=== PATIENT | female | born 2005 | race Two or more races ===

== ENCOUNTER 2023-12-29 16:44 | Emergency (ER) | payer MEDICAID ==
[~2023-12-29] VITALS: Ht 162.6 cm; Wt 98.7 kg
[2023-12-29 19:03] VITALS: BP 129/80; PULSE 85; RESP 16; TEMP 97.9; O2SAT 97
[2023-12-29] MEDS ORDERED: IBUP1TAB5 PO (19:13)
[2023-12-29] MEDS ORDERED: CEPH500C PO (19:13)
== END 2023-12-29 19:24 | disposition home or self-care (01) ==
LOC: ER 16:44
DX: H10.31 Unspecified acute conjunctivitis, right eye (principal); H01.003 Unspecified blepharitis right eye, unspecified eyelid

== ENCOUNTER 2025-04-08 02:32 | Emergency (ER) | payer MEDICAID ==
[~2025-04-08] VITALS: Ht 162.6 cm; Wt 106.0 kg
[~2025-04-08 02:32] MED LIST: CEPH500C PO; IBUP1TAB5 PO
[2025-04-08 04:21] LABS: Basophils # (auto) 0.1 10 ^3/uL (0-0.2); Basophils % (auto) 0.8 % (0.0-2.0); Eosinophils # (auto) 0.3 10 ^3/uL (0-0.8); Eosinophils % (auto) 2.3 % (0.0-7.0); Hematocrit 44.6 % (36.0-46.0); Hemoglobin 15.2 g/dL (12.2-16.2); Lymphocytes # (auto) 3.8 10 ^3/uL (0.4-5.4); Mean Corpuscular Hemoglobin 29.3 pg (28.0-32.0); Mean Corpuscular Hgb Conc. 34.1 g/dL (32.0-36.0); Mean Corpuscular Volume 86.1 fL (80.0-100.0); Monocytes # (auto) 0.8 10 ^3/uL (0-1.3); Monocytes % (auto) 5.8 % (0.0-12.0); Neutrophils # (auto) 8.6 10 ^3/uL (1.6-8.6); Neutrophils % (auto) 63.1 % (37.0-80.0); Platelet Count (auto) 290 10^3/uL (140-450); Red Blood Cells 5.18 10^6/uL (4.0-5.20); Red Cell Distribution Width 13.2 % (11.8-14.3); White Blood Cell 13.7 10^3/uL (4.4-10.8)
[2025-04-08 04:27] VITALS: BP 123/80; PULSE 89; RESP 16; TEMP 99.9; O2SAT 97
[2025-04-08 04:32] LABS: Chloride 103 mmol/L (98-107); Potassium 3.9 mmol/L (3.5-5.1); Sodium 137 mmol/L (136-145)
[2025-04-08 04:33] LABS: Anion Gap 12 (5-15); Calcium 9.4 mg/dL (8.7-10.4); Carbon Dioxide 22 mmol/L (20-31)
[2025-04-08 04:38] LABS: BUN/Creatinine Ratio 13.2 (10.0-20.0); Blood Urea Nitrogen 9 mg/dL (9-23)
[2025-04-08] MEDS: KETOROLAC TROMETH 30 MG/ML 1ML VIAL IV ONE (04:49)
[2025-04-08] MEDS: CLINDAMYCIN 300MG IV 50 ML IV ONE (04:49)
[2025-04-08 04:51] LABS: Glucose 121 mg/dL (74-106)
[2025-04-08] MEDS: IOHEXOL 300 MG/ML 100ML BOTTLE IJ ONE (04:57)
--- NOTE | 2025-04-08 05:13 | DVH ---
History: r/o abscesss upper gluteal crease Comparison Study: None Technique: Multidetector spiral CT of the pelvis was performed from iliac crests to pubic symphysis. 100 cc of intravenous contrast was administered during this examination. Portal venous imaging was obtained. Axial, coronal and sagittal multiplanar reformats were performed by the technologist on a separate workstation. Radiation Dose : CT Dose: CTDI volume is 37.08 mGy. Dose-length product is 1609.14 mGy*cm Findings: Visualized bowel: Small bowel and colon are normal in caliber and distribution. The appendix is not visualized; however, no secondary findings of acute appendicitis identified. Ascites: Absent Lymphadenopathy: No pelvic or mesenteric lymphadenopathy. Pelvis Wall and Mesentery: Small abscess in the superficial subcutaneous soft-tissue at midline of th e upper gluteal cleft. This measures 1.6 cm and is just below the skin surface. Vasculature: The visualized abdominal aorta is normal in size and caliber. Abdominal and pelvic vess els demonstrate normal enhancement. Pelvic Organs: Unremarkable Musculoskeletal: No aggressive focal bony lesions, acute fractures or dislocation. Bladder: Unremarkable IMPRESSION: Small abscess in the superficial subcutaneous soft-tissue at midline of the upper gluteal cleft. This measures 1.6 cm and is just below the skin surface.
--- NOTE | 2025-04-08 05:24 | ED.PDOC ---
History of Present Illness(SKN HPI Comments 19 y/o F presents with draining abscess wound. Patient reports on history of current abscess in her upper gluteal crease that began having puss infused with blood discharge, suddenly, this morning. She denies having any fever, chills, lightheadedness, nausea, vomiting, or further associated symptoms. Chief Complaint: Abscess Time Seen by MD: 02:48 Primary Care Provider: NONE History of Present Illness: Nurses Notes, Medications, Allergies Allergies: Coded Allergies: NO KNOWN ALLERGIES (Unverified , 12/29/23) Home Meds Active Scripts Ibuprofen (Ibuprofen) 600 Mg Tab, 1 TAB PO TID PRN for 5 Days, #15 TAB Prov:DAVID CHANEY MD 04/08/25 Acetaminophen (Acetaminophen Er) 650 Mg Tab, 650 MG PO TIDPRN PRN for 5 Days, #15 TAB Prov:DAVID CHANEY MD 04/08/25 Clindamycin Hcl (Clindamycin Hcl) 300 Mg Cap, 1 CAP PO TID, #21 CAP Prov:DAVID CHANEY MD 04/08/25 Ibuprofen Micronized (Ibuprofen) 600 Mg Tab, 1 TAB PO Q6HPRN PRN, #20 TAB Needed for pain Prov:BETTSMIRANDAALDA Q MARINE EQUIPMENT DESIGN ENGINEER 12/29/23 Cephalexin Monohydrate (Cephalexin) 500 Mg Cap, 1 CAP PO QID for 10 Days, #40 CAP Prov:BETTSMIRANDAALDA Q MARINE EQUIPMENT DESIGN ENGINEER 12/29/23 Information Source: Patient Mode of Arrival: Ambulatory Severity: Mild Timing: Hours Duration: Since onset Prehospital treatment: None Review of Systems: REVIEW OF SYSTEMS: No fever, no chills, or fatigue HEENT: No sore throat, no earache, no congestion, no neck pain. Cardiac: No chest pain. No palpitations. Lungs: No shortness of breath, no cough. GI: No nausea, no vomiting, no diarrhea, no constipation, no abdominal pain : No dysuria, frequency, or urgency. No hematuria. Musculoskeletal: No joint pain , no joint swelling, no extremity edema. Skin: Abscess with discharge to gluteal crease. No rash, no itching. Neuro: No headache, no dizziness, no weakness Vital Signs Vital Signs Date Time Temp Pulse Resp B/P (MAP) Pulse Ox O2 Delivery O2 Flow Rate FiO2 04/08/25 04:27 99.9 89 16 123/80 (94) 97 99.9 Physical Exam General: Awake, alert and oriented. No acute distress. Skin: Draining abscess with blood and pus that is indurated in upper gluteal crease with erythema and warmth to surrounding tissues. Skin in warm, dry and intact. Appropriate color for ethnicity. HEENT: The head is normocephalic and atraumatic. Conjunctivae are clear without exudates or hemorrhage. Sclera is non-icteric. EOM are intact. No signs of nystagmus. Eyelids are normal in appearance without swelling or lesions. Oral mucosa is pink and moist Neck: The neck is supple with normal range of motion. No JVD. Cardiac: Heart rate and rhythm are normal. No murmurs, gallops, or rubs are auscultated. Respiratory: No signs of respiratory distress. Lung sounds are clear in all lobes bilaterally without rales, rhonchi, or wheezes. Abdominal: Abdomen is soft, non-tender without distention, guarding or rigidity. Bowel sounds are present and normoactive in all four quadrants. Extremities: Upper and lower extremities are atraumatic in appearance without deformity or edema. Neurological: The patient is awake, alert and oriented to person, place, and time with normal speech. Speech is clear. There is no facial asymmetry. Psychiatric: Appropriate mood and affect. Good judgement and insight. Past Medical History PAST MEDICAL HISTORY: Denies Surgical History: Denies all surgeries CAR SHAKEOUT OPERATOR History: No Pertinent CAR SHAKEOUT OPERATOR History Differential Diagnosis (INTG) Differential Diagnosis: Abscess, Atopic dermatitis, Contact Dermatitis, Erythema multiforme, Psoriasis, Varicella X-Ray, Labs, Meds, VS Vital Signs Date Time Temp Pulse Resp B/P (MAP) Pulse Ox O2 Delivery O2 Flow Rate FiO2 04/08/25 04:27 99.9 89 16 123/80 (94) 97 99.9 04/08/25 02:49 98.7 100 16 144/73 (96) 97 98.7 Lab Test 04/08/25 03:59 Range/Units White Blood Count 13.7 H 4.4-10.8 10^3/uL Red Blood Count 5.18 4.0-5.20 10^6/uL Hemoglobin 15.2 12.2-16.2 g/dL Hematocrit 44.6 36.0-46.0 % Mean Corpuscular Volume 86.1 80.0-100.0 fL Mean Corpuscular Hemoglobin 29.3 28.0-32.0 pg Mean Corpuscular Hemoglobin Concent 34.1 32.0-36.0 g/dL Red Cell Distribution Width 13.2 11.8-14.3 % Platelet Count 290 140-450 10^3/uL Mean Platelet Volume 7.9 6.9-10.8 fL Neutrophils (%) (Auto) 63.1 37.0-80.0 % Lymphocytes (%) (Auto) 28.0 10.0-50.0 % Monocytes (%) (Auto) 5.8 0.0-12.0 % Eosinophils (%) (Auto) 2.3 0.0-7.0 % Basophils (%) (Auto) 0.8 0.0-2.0 % Neutrophils # (Auto) 8.6 1.6-8.6 10 ^3/uL Lymphocytes # (Auto) 3.8 0.4-5.4 10 ^3/uL Monocytes # (Auto) 0.8 0-1.3 10 ^3/uL Eosinophils # (Auto) 0.3 0-0.8 10 ^3/uL Basophils # (Auto) 0.1 0-0.2 10 ^3/uL Nucleated Red Blood Cells 0.0 % Sodium Level 137 136-145 mmol/L Potassium Level 3.9 3.5-5.1 mmol/L Chloride Level 103 98-107 mmol/L Carbon Dioxide Level 22 20-31 mmol/L Anion Gap 12 5-15 Blood Urea Nitrogen 9 9-23 mg/dL Creatinine 0.68 0.550-1.02 mg/dL Glomerular Filtration Rate Calc 127 >90 mL/min BUN/Creatinine Ratio 13.2 10.0-20.0 Serum Glucose 121 H 74-106 mg/dL Calcium Level 9.4 8.7-10.4 mg/dL Current Medications Medications (Trade) Dose Ordered Sig/Gus Route Start Time Stop Time Status Last Admin Ketorolac Tromethamine (Toradol Injection) 15 mg ONCE ONCE IV 04/08/25 04:15 04/08/25 04:16 DC 04/08/25 04:49 Clindamycin Phosphate 50 ml @ 50 mls/hr ONCE ONCE IV 04/08/25 04:15 04/08/25 05:14 DC 04/08/25 04:49 [facility] [id number] [facility] [id number] Ph: [phone] DIAGNOSTIC IMAGING Diagnostic Imaging Report : [id number] Signed PATIENT: LATOYA ALEXANDER ACCT: [id number] UNIT: [id number] : 2005 LOC: ER ROOM / BED: / AGE / SEX: 19 / F ADM STATUS: REG ER SERVICE [id number] ORDERING PHYSICIAN: DAVID CHANEY MD PROCEDURE(s): PELCT - PELVIS WITH CONTRAST ONLY REASON: r/o abscesss upper gluteal crease ORDER NUMBER(s): [id number], ACCESSION NUMBER(s): [id number] History: r/o abscesss upper gluteal crease Comparison Study: None Technique: Multidetector spiral CT of the pelvis was performed from iliac crests to pubic symphysis. 100 cc of intravenous contrast was administered during this examination. Portal venous imaging was obtained. Axial, coronal and sagittal multiplanar reformats were performed by the technologist on a separate workstation. Radiation Dose : CT Dose: CTDI volume is 37.08 mGy. Dose-length product is 1609.14 mGy*cm Findings: Visualized bowel: Small bowel and colon are normal in caliber and distribution. The appendix is not visualized; however, no secondary findings of acute appendicitis identified. Ascites: Absent Lymphadenopathy: No pelvic or mesenteric lymphadenopathy. Pelvis Wall and Mesentery: Small abscess in the superficial subcutaneous soft-t issue at midline of the upper gluteal cleft. This measures 1.6 cm and is just below the skin surface. Vasculature: The visualized abdominal aorta is normal in size and caliber. Abdominal and pelvic vessels demonstrate normal enhancement. Pelvic Organs: Unremarkable Musculoskeletal: No aggressive focal bony lesions, acute fractures or dislocation. Bladder: Unremarkable IMPRESSION: Small abscess in the superficial subcutaneous soft-tissue at midline of the upper gluteal cleft. This measures 1.6 cm and is just below the skin surface. ATED BY: PATRICK ZIMMER MD DICTATED DATE/TIME: 04/08/25510 SIGNED BY: PATRICK ZIMMER MD SIGNED DATE/TIME: 06/23/25 0511 CC: Time of 1ST Reevaluation: 03:18 Reevaluation 1ST: Unchanged Patient Education/Counseling: Need For Follow Up Family Education/Counseling: No Family Present SEPSIS Sepsis Screen Date sepsis recognized/suspect: Apr 08, 2025 Time Sepsis recognized/suspect: 243 Recent Procedure: No On Antibiotic Therapy: No Respiratory Rate >20: No Heart Rate >90: Yes Temp<36 C (96.8 F) or >38.3 C: No SBP <90 or MAP <65 mmHG: No New Acute Mental Status Change: No Is the patient on CPAP, BIPAP,: No Physician Orders Saline Lock (04/08/25 03:58) Blood Culture (04/08/25 03:58) Pelvis With Contrast Only (04/08/25 03:59) Betadine (04/08/25 05:25) Disposable Chux (04/08/25 05:25) Sterile Gloves (04/08/25 05:25) Vital Signs Date Time Temp Pulse Resp B/P (MAP) Pulse Ox O2 Delivery O2 Flow Rate FiO2 04/08/25 04:27 99.9 89 16 123/80 (94) 97 99.9 04/08/25 02:49 98.7 100 16 144/73 (96) 97 98.7 Laboratory Tests Test 04/08/25 03:59 White Blood Count 13.7 10^3/uL (4.4-10.8) H Medications Medications Dose Ordered Sig/Gus Route Start Time Stop Time Status Last Admin Dose Admin Clindamycin Phosphate 50 ml @ 50 mls/hr ONCE ONCE IV 04/08/25 04:15 04/08/25 05:14 DC 04/08/25 04:49 Ketorolac Tromethamine 15 mg ONCE ONCE IV 04/08/25 04:15 04/08/25 04:16 DC 04/08/25 04:49 Departure 1 Departure Time of Disposition: 05:46 Impression: Primary Impression: Abscess Additional Impression: Cellulitis Disposition: HOME / SELF CARE / HOMELESS Condition: Stable Additional Instructions: ED DISCHARGE INSTRUCTIONS Instructions: Please read all instructions provided in this packet carefully. Although you have been discharged from the Emergency Department, this does not mean that you have a "clean bill of health". []No definitive diagnosis for your symptoms has been made today. It is possible that you are in the process of developing a serious illness. This is why you must return to the ED without fail if any new or worsening symptoms (especially if your symptoms include chest pain, trouble breathing, abdominal pain, fever, headache, confusion, trouble seeing, or trouble walking) It is also very important that you see a primary care doctor within the next 3-5 days to follow up. If you are unable to get an appointment, return to the ED for re-evaluation. Skin Abscess: Care Instructions Overview A skin abscess is a bacterial infection that forms a pocket of pus. A boil is a kind of skin abscess. The doctor may have cut an opening in the abscess so that the pus can drain out. You may need antibiotics. You will need to follow up with your doctor to make sure the infection has gone away. The doctor has checked you carefully, but problems can develop later. If you notice any problems or new symptoms, get medical treatment right away. Follow-up care is a blanton part of your treatment and safety. Be sure to make and go to all appointments, and call your doctor if you are having problems. It's also a good idea to know your test results and keep a list of the medicines you take. How can you care for yourself at home? Apply warm and dry compresses, a heating pad set on low, or a hot water bottle 3 or 4 times a day for pain. Keep a cloth between the heat source and your skin. If your doctor prescribed antibiotics, take them as directed. Do not stop taking them just because you feel better. You need to take the full course of antibiotics. Take pain medicines exactly as directed. If the doctor gave you a prescription medicine for pain, take it as prescribed. If you are not taking a prescription pain medicine, ask your doctor if you can take an [id number] medicine. Keep your bandage clean and dry. Change the bandage whenever it gets wet or dirty, or at least one time a day. Soak the area in warm water for 15 to 20 minutes 2 times a day, until the wound closes. When should you call for help? Call your doctor now or seek immediate medical care if: You have signs of worsening infection, such as: Increased pain, swelling, warmth, or redness. Red streaks leading from the infected skin. Pus draining from the wound. A fever. Watch closely for changes in your health, and be sure to contact your doctor if: You do not get better as expected. Credits for Skin Abscess: Care Instructions Current as of: September 19, 2024 Author: [employer] Staff Clinical Review Board All [employer] education is reviewed by a team that includes physicians, nurses, advanced practitioners, registered dieticians, and other healthcare professionals. e-Prescriptions Ibuprofen (Ibuprofen) 600 Mg Tab 1 TAB PO TID PRN for 5 Days, #15 TAB Prov: DAVID CHANEY MD 04/08/25 Acetaminophen (Acetaminophen Er) 650 Mg Tab 650 MG PO TIDPRN PRN for 5 Days, #15 TAB Prov: DAVID CHANEY MD 04/08/25 Clindamycin Hcl (Clindamycin Hcl) 300 Mg Cap 1 CAP PO TID, #21 CAP Prov: DAVID CHANEY MD 04/08/25 Comments Patient well-appearing, nontoxic. Advised prompt follow-up with PCP, return to the ED with any new, worsening or concerning symptoms. Incision and Drainage Procedure Note Indication: subcutaneous abscess Verbal consent obtained. PROCEDURE: incision and drainage of abscess Performing Physician: Dr. Chaney PROCEDURE: A timeout protocol was performed prior to initiating the procedure. The area was prepared and draped in the usual, sterile manner. The site was anesthetized with 2% lidocaine with epinephrine. A linear incision along the local skin lines was made and the purulent material expressed. The abcess was explored thoroughly and sequestered pockets were opened. Bleeding was minimal. Packing: None Followup: The patient tolerated the procedure well without complications. Standard post-procedure care is explained and return precautions are given. Extensive evaluation was performed in attempt to identify or rule out: (See differential diagnosis section) The following tests were ordered, and results were reviewed by me and discussed with patient: (See diagnostic results section) The following test were independently interpreted by me: N/A I reviewed and agreed with the following test results read by other providers: Pelvis CT I reviewed the following notes from the pt's past medical encounters: March 08, 2024 for eye pain Additional information was gathered from interviewing the following independent historians: N/A Discussion of management or test interpretation with external physician/other qualified health healthcare facility administrator: N/A Addressed [ ]one or more chronic illnesses with severe exacerbation, progression, or side effects of treatment: [ ]an acute or chronic illness that poses a threat to life or bodily function: [ ] Decision regarding hospitalization or escalation of hospital level of care: Risk and benefits of admission for further treatment of patient's condition was considered. Due to patient's current clinical condition, high risk of decline and poor outcome if discharged and need for further inpatient management and monitoring, patient will be admitted to the hospital. Drug therapy requiring intensive monitoring for toxicity: N/A Parenteral controlled substances: N/A Decision regarding elective major surgery with identified patient or procedure risk factors: N/A Decision regarding emergency major surgery: N/A Decision not to resuscitate or to de-escalate care because of poor prognosis: N/A Diagnosis or treatment significantly limited by social determinants of health: N/A Decision regarding hospitalization or escalation of hospital level of care: Risks and benefits of admission for further treatment of patient's condition was considered however due to patient's stable condition patient will be discharged to follow up closely or return to care for worsening of condition or inability to follow up. Critical Care Note Critical Care Time?: No Stability Stability form required: No Heart Score Heart Score: Heart Score Response (Comments) Value History N/A 0 EKG N/A 0 Age N/A 0 Risk Factors N/A 0 Troponin N/A 0 Total 0 I personally scribed for DAVID CHANEY MD ([email or web address]) on 04/08/25 at 05:59. Electronically submitted by Adrián Snyder ([email or web address]). DAVID CHANEY MD Apr 08, 2025 05:24
[2025-04-08] MEDS: LIDOCAINE W/ EPINEPHRINE 2% INJ 20ML VIAL ID ONE (05:33)
[2025-04-08] MEDS ORDERED: IBUP-1454 PO (05:48)
[2025-04-08] MEDS ORDERED: CLIN1CAP70 PO (05:48)
[2025-04-08] MEDS ORDERED: ACET650T12 PO (05:48)
== END 2025-04-08 06:02 | disposition home or self-care (01) ==
LOC: ER 02:32
DX: L03.317 Cellulitis of buttock (principal)
CPT/HCPCS: 10060; 36415; 72193; 80048; 85025; 87040; 96365; 96375; 99285; J1885; J3490; Q9967